=== PATIENT | male | born 1940 | race Caucasian/White ===

== ENCOUNTER 2018-01-19 05:45 | Day surgery (SDC) | payer OTHER | END 2018-01-19 13:00 | disposition home or self-care (01) | LOC: AMB-ENDOS 05:45 | DX: K94.23 Gastrostomy malfunction (principal); G20 Parkinson's disease ==

== ENCOUNTER 2018-05-12 05:51 | Day surgery (SDC) | payer OTHER | END 2018-05-12 10:55 | disposition home or self-care (01) | LOC: AMB-ENDOS 05:51 → EDBD 05:51 → AMB-ENDOS 10:55 | DX: K94.23 Gastrostomy malfunction (principal); G20 Parkinson's disease ==

== ENCOUNTER → 2018-05-25 | Day surgery (SDC) | payer OTHER | END | disposition home or self-care (01) | LOC: AMB-ENDOS 05:49 | DX: K94.23 Gastrostomy malfunction (principal) ==

== ENCOUNTER → 2018-08-03 | Emergency (ER) | payer OTHER ==
[~2018-08-03] VITALS: Ht 182.9 cm; Wt 72.6 kg
[~2018-08-03] MED LIST: ASACOL HD800 MG; BUSPAR; COZAAR25 MG PO; DUOPA 4.63 MG-100 ML; FINASTERIDE5 MG; FORTAMET1000 MG; LIPITOR20 MG PO; NEURONTIN600 MG; NORVASC10 MG PO; PROTONIX IV40 MG; TAMS0.4C PO; ZOLOFT50 MG PO
== END | disposition designated cancer center or children's hospital (05) ==
LOC: ER 11:07
DX: I62.02 Nontraumatic subacute subdural hemorrhage (principal); I62.1 Nontraumatic extradural hemorrhage; I10 Essential (primary) hypertension; R20.2 Paresthesia of skin; R53.1 Weakness; G20 Parkinson's disease